=== PATIENT | male | born 1970 | race Two or more races ===

== ENCOUNTER 2017-11-29 08:07 | Outpatient (CLI) | payer OTHER ==
[~2017-11-29 08:07] MED LIST: ALEVE220 M1 PO; AUGMENTIN1 TAB.CHEW; CEFADROXIL500 MG PO; FLONASE16 GM NS; HYZAAR 100-121 UDTAB PO; HYZAAR 50-12.1 UDTAB; HYZAAR 50-12.51 EACH PO; HYZAAR 50/12.51 TAB PO; LODINE XL500 MG PO; MEDROL4 MG PO; MUPIROCIN15 GM TP; NORTUSS-EX LIQ118 ML PO; OSEL75CA PO; OXYC1TAB9 PO; PENLAC6.6 ML TP; PERCOCET 5/3251 TAB PO; PHENERGAN PO; POLY119PG PO; PRILOSEC10 MG; PROVENTIL0.5 ML/2.5 IH; SURFAK240 M1 PO; TORADOL60 MG IM; ULTRACET PO; VASOTEC5 MG; VOLTAREM 50 MG PO; XARELTO15 MG PO; ZANTAC150 M1; ZYRTEC10 MG PO
== END 2017-11-29 10:00 | disposition home or self-care (01) ==
LOC: NUCLEAR 08:07
DX: D68.61 Antiphospholipid syndrome (principal); D68.62 Lupus anticoagulant syndrome; E72.11 Homocystinuria; E72.12 Methylenetetrahydrofolate reductase deficiency; I82.431 Acute embolism and thrombosis of right popliteal vein; I80.221 Phlebitis and thrombophlebitis of right popliteal vein; J45.998 Other asthma; I10 Essential (primary) hypertension

== ENCOUNTER → 2018-03-24 06:18 | Outpatient (CLI) | payer OTHER | END | disposition home or self-care (01) | LOC: LAB 06:18 | DX: D68.61 Antiphospholipid syndrome (principal); D68.62 Lupus anticoagulant syndrome; E72.11 Homocystinuria; E72.12 Methylenetetrahydrofolate reductase deficiency; I82.431 Acute embolism and thrombosis of right popliteal vein; I80.221 Phlebitis and thrombophlebitis of right popliteal vein; J45.998 Other asthma; I10 Essential (primary) hypertension; D50.8 Other iron deficiency anemias; D51.8 Other vitamin B12 deficiency anemias; E55.9 Vitamin D deficiency, unspecified ==